=== PATIENT | male | born 1980 | race Caucasian/White ===

== ENCOUNTER 2020-01-31 10:31 | Outpatient (CLI) | payer OTHER, SELFPAY ==
--- NOTE | 2020-01-31 10:44 | XR_ITS ---
WS: [id number] XR cervical spine 3V* [id number] REASON FOR EXAM: S/P CERVICAL SPINE FUSION FINDINGS: Anterior fusion changes with intraspinal space are at C5-C6. The alignment is satisfactory at that level. In the AP projection the remaining cervical spine shows normal amniotic, pedicles, spinous processes. The cervicothoracic junction was normal. The odontoid process is normal. XR/XR cervical spine 3V* [id number] IMPRESSION: Stable fusion C5-C6 with intraspinal spacer.
== END 2020-01-31 10:32 | disposition home or self-care (01) ==
LOC: RAD 10:38
PROVIDERS: Visit Provider Obstetrics & Gynecology
DX: Z98.1 Arthrodesis status (principal)
CPT/HCPCS: 72040

== ENCOUNTER 2020-05-07 15:16 | Outpatient (CLI) | payer OTHER, SELFPAY ==
--- NOTE | 2020-05-07 15:32 | XRR_ITS ---
PROCEDURE INFORMATION: Exam: XR Cervical Spine, 2 or 3 Views Exam date and time: 05/07/2020 3:34 PM Age: 39 years old Clinical indication: Neck pain; Prior surgery; Surgery date: 6+ months; Surgery type: Cervical fusion October 2019; Additional info: S/P cervical fusion TECHNIQUE: Imaging protocol: XR of the cervical spine, 2 or 3 views. COMPARISON: No relevant prior studies available. FINDINGS: Vertebrae: Surgical hardware is present anterior to the cervical vertebral bodies at the C5-C6 level. Loss of cervical lordosis is seen likely due to postoperative changes. Soft tissues: Unremarkable. XR/XR cervical spine 3V* [id number] IMPRESSION: 1. Postsurgical changes spine cervical spine 2. Loss of cervical lordosis likely due to postoperative changes. 3. Otherwise negative examination
== END 2020-05-07 15:17 | disposition home or self-care (01) ==
LOC: RADWPI 15:27
PROVIDERS: Visit Provider Obstetrics & Gynecology
DX: Z98.1 Arthrodesis status (principal)
CPT/HCPCS: 72040

== ENCOUNTER 2020-06-16 07:32 | Outpatient (RCR) | payer OTHER, SELFPAY | END 2020-06-26 23:59 | disposition home or self-care (01) | LOC: SPT 07:32 | PROVIDERS: Referring Provider Obstetrics & Gynecology; Visit Provider Obstetrics & Gynecology | DX: Z47.89 Encounter for other orthopedic aftercare (principal); Z98.1 Arthrodesis status | CPT/HCPCS: 97110; 97161 ==

== ENCOUNTER 2020-06-27 06:00 | Outpatient (RCR) | payer OTHER, SELFPAY | END 2020-07-27 23:59 | disposition home or self-care (01) | LOC: SPT 06:00 | PROVIDERS: Referring Provider Obstetrics & Gynecology; Visit Provider Obstetrics & Gynecology | DX: Z98.1 Arthrodesis status (principal) | CPT/HCPCS: 97110 ==

== ENCOUNTER 2025-09-02 18:09 | Emergency (ER) | payer SELFPAY ==
[2025-09-02 18:08] VITALS: BP 114/81; PULSE 113; RESP 16; TEMP 36.8; O2SAT 97; BMI 26.5
--- NOTE | 2025-09-02 18:13 | ED_ITS ---
HPI - Syncope 2 General: Chief Complaint: Syncope Stated Complaint: Syncope History of Present Illness: 45-year-old man who presents to the [facility] room after he had a syncopal episode. He said he was not feeling well today. He said he slept all day. He said he laid in bed and thought he got dehydrated when he got up he passed out and when he woke up he had the weakness symptoms that have since resolved. At this time he has no specific complaints. Just some malaise. Patient states I am healthy as a horse . He takes no medications. Related Data Home Medications ?Medication ?Instructions ?Recorded ?Confirmed No Known Home Medications 12/02/2405/21 Allergies Allergy/AdvReac Type Severity Reaction Status Date / Time almond Allergy ALGY-Anaphy Verified 09/02/25 18:15 laxis Review of Systems 2 Narrative: Constitutional symptoms: Negative except as documented in HPI. Skin symptoms: Negative except as documented in HPI. Eye symptoms: Negative except as documented in HPI. ENMT symptoms: Negative except as documented in HPI. Respiratory symptoms: Negative except as documented in HPI. Cardiovascular symptoms: Negative except as documented in HPI. Gastrointestinal symptoms: Negative except as documented in HPI. Genitourinary symptoms: Negative except as documented in HPI. Musculoskeletal symptoms: Negative except as documented in HPI. Neurologic symptoms: Negative except as documented in HPI. Psychiatric symptoms: Negative except as documented in HPI. Endocrine symptoms: Negative except as documented in HPI. PFSH ED 2 PFSH: Social History Smoking and tobacco/nicotine status: current every day tobacco/nicotine user Physical Exam 2 Narrative: EXAM NARRATIVE: Constitutional symptoms: Negative except as documented in HPI. Skin symptoms: Negative except as documented in HPI. Eye symptoms: Negative except as documented in HPI. ENMT symptoms: Negative except as documented in HPI. Respiratory symptoms: Negative except as documented in HPI. Cardiovascular symptoms: Negative except as documented in HPI. Gastrointestinal symptoms: Negative except as documented in HPI. Genitourinary symptoms: Negative except as documented in HPI. Musculoskeletal symptoms: Negative except as documented in HPI. Neurologic symptoms: Negative except as documented in HPI. Psychiatric symptoms: Negative except as documented in HPI. Endocrine symptoms: Negative except as documented in HPI. Course 2 Vital Signs: Vital signs: Vital Signs Temperature 98.2 F 09/02/25 18:08 Pulse Rate 83 09/02/25 18:42 Respiratory Rate 18 09/02/25 18:42 Blood Pressure 127/86 09/02/25 18:42 Pulse Oximetry 100 09/02/25 18:42 Oxygen Delivery Me thod Room Air 09/02/25 18:08 MDM - Syncope Medical Decision Making Medical decision making: Differential diagnosis including but not limited to and based on the above HPI, review of systems and physical exam in this patient with syncope: Vasovagal, orthostatics hypotension, cardiac dysrhythmia, myocardial infarction, infection and hypotension, Orders placed to evaluate differential diagnosis based on the above differential, HPI and physical exam EKG: Time 1820. Rate 77. Normal sinus rhythm, No ST-T changes, no ectopy, normal WI & QRS intervals, This was reviewed and interpreted by myself the ER physician at 1825 CT head: No acute intracranial process. No intracranial hemorrhage, no evidence of infarct. No evidence of acute fracture. This was reviewed and interpreted by myself the emergency room physician. I also reviewed the radiology report. Lab Review: Laboratory results were reviewed and interpreted by myself the emergency room physician. No leukocytosis. No anemia. No renal failure. I reviewed the patient's medical record. Reexamination: Patient's heart rate has come down and blood pressure is gone up with fluids. I think he may have had some orthostatic hypotension. He had not had anything to eat or drink all day or all night and then stood up quickly and passed out. Assessment and plan: Dehydration Syncope ? Normal saline bolus in the emergency room - Discharged home - Discussed plan with patient. Answered any questions. - Evaluation and treatment of this problem were appropriate in the emergency setting. Lab Data 09/02/25 18:24 09/02/25 18:[address] 09/02/25: IMPRESSION: No acute intracranial abnormality. Laboratory Results WBC 6.40 10^3/uL (3.29-11.43) 09/02/25 18: RBC 4.86 10^6/uL (3.85-5.65) 09/02/25 18:24 Hgb 14.40 g/dL (11.27-16.99) 09/02/25 18: Hct 43.5 % (37-53) 09/02/25 18: MCV 89.5 fl (82-101) 09/02/25 18:24 MCH 29.6 pg (27-33) 09/02/25 18: MCHC 33.1 g/dL (30-55) 09/02/25 18:24 RDW 12.4 % (12.1-15.1) 09/02/25 18:24 Plt Count 228 10^3/cmm (157-399) 09/02/25 18: MPV 8.6 fL (7.4-10.4) 09/02/25 18:24 Neut % (Auto) 57.7 % 09/02/25 18:24 Lymph % (Auto) 32.5 % 09/02/25 18: [place] % (Auto) 8.3 % 09/02/25 18: Eos % (Auto) 0.9 % 09/02/25 18: Baso % (Auto) 0.3 % 09/02/25 18: Neut # (Auto) 3.69 10^3/uL (1.8-7.7) 09/02/25 18: Lymph # (Auto) 2.1 10^3/uL (0.8-4.8) 09/02/25 18:24 [place] # (Auto) 0.5 10^3/uL (0.2-0.9) 09/02/25 18: Eos # (Auto) 0.1 10^3/uL (0.0-0.8) 09/02/25 18: Baso # (Auto) 0.0 10^3/uL (0.0-0.1) 09/02/25 18: Nucleated RBC % (auto) 0 % 09/02/25 18: Nucleated RBCs # 0.0 /100WBC 09/02/25 18:24 Sodium 140 mmol/L (136-145) 09/02/25 18:24 Potassium 3.8 mmol/L (3.5-5.1) 09/02/25 18:24 Chloride 106 mmol/L (98-107) 09/02/25 18:24 Carbon Dioxide 23 mmol/L (22-29) 09/02/25 18:24 Anion Gap 14.8 (5-19) 09/02/25 18:24 BUN 11 mg/dL (6-20) 09/02/25 18:24 Creatinine 0.9 mg/dL (0.7-1.2) 09/02/25 18:24 GFR Calculation 90.8 mL/min (90-130) 09/02/25 18:24 Glucose 119 mg/dL (65-115) H 09/02/25 18:24 Calculated Osmolality 291 mOsm/kg (285-295) 09/02/25 18:24 Lactic Acid 1.4 mmol/L (0.5-2.2) 09/02/25 18:24 Calcium 8.7 mg/dL (8.5-10.5) 09/02/25 18:24 Total Bilirubin 0.4 mg/dL (0.15-1.2) 09/02/25 18:24 AST 16 U/L (0-40) 09/02/25 18:24 ALT 15 U/L (0-41) 09/02/25 18:24 Alkaline Phosphatase 84 U/L (40-130) 09/02/25 18:24 Total Protein 6.5 g/dL (6.6-8.7) L 09/02/25 18:24 Albumin 3.9 g/dL (3.5-5.2) 09/02/25 18:24 Globulin 2.6 g/dL (1.3-4.6) 09/02/25 18:24 All radiology interpretation(s) finalized by discharge Discharge Plan Discharge Patient Disposition: Home Clinical Impression: Syncope, Dehydration Condition: Stable Prescriptions: No Action No Known Home Medications Discharge Orders: Discharge ED (Routine); Ordered 09/02/25 Ordered By: Kelle Casey Discharge Diet: Usual diet Discharge Activity: Increase activity as tolerated Patient Instructions: Opioid Safety, Pain Management, Patient Portal & Jennifer Instructions Activity Restrictions/Additional Instructions: Thank you for choosing [facility] for your healthcare needs today. You have been screened and evaluated and felt safe for discharge. Health conditions do change or evolve sometimes and as such it is important that you follow up with your Primary Doctor to be re checked, 3-5 days is a general good time frame for follow up. You are always welcome to return to the ED for re assessment if your symptoms are worsening or you have new concerns Print Language: Syriac Coding Level of Care Code ED Physician Underwriter for Louis Taylor
--- NOTE | 2025-09-02 18:20 | ECG_ITS ---
[facility] 2025[facility]02 Pat Name: Vicente Matos Department: Room: Gender: Male Security Services Manager: : 1980 Requested By: Kelle George Order Number: [id number] Pollock MD: Hernando Kaplan M.D. Measurements Intervals [place] Rate: 77 P: 60 [place]: 131 QRS: -7 QRSD: 105 T: 38 QT: 409 QTc: 464 Interpretive Statements SINUS RHYTHM POSSIBLE LEFT ATRIAL ENLARGEMENT [-0.1mV P-WAVE IN V1/V2] No previous ECG available for comparison Electronically Signed On 09-02-2025 23:47:59 CDT by Hernando Kaplan M.D. [email or web address]
--- OUTSIDE RECORDS SUMMARY | 2025-09-02 18:24 | XMS_ITS | Clinical Summary ---
Author Organization [facility] Address [address] [place]n: Epic Prelude ADT [place] [address] Care Team Providers Care Cargo Supervisor Name Role Phone Eric Poe MD Primary Care Provider [phone] Allergies No known active allergies Medications levoFLOXacin (LEVAQUIN) 500 mg tablet Take 1 Tablet (500 mg) by mouth daily. 10 Tablet None 6 Active Additional Information Patient not taking.Reported on 11/06/2023 omeprazole (PriLOSEC) 20 mg Capsule, Delayed Release(E.C.) Take 20 mg by mouth 1 time daily as needed. 6 Active ibuprofen (MOTRIN) 200 mg tablet Take 800 mg by mouth every 6 hours as needed for Pain, Mild. 6 Active Additional Information Patient not taking.Reported on 12/22/2023 Active Problems Problem Noted Date Diagnosed Date Influenza B 11/07/2023 Cigarette dependence 10/06/2016 Immunizations Immunization Administration Dates Next Due Hepatitis A Vaccine 03/21/2002,10/26/2000 Social History Tobacco Use Types Packs/Day Years Used Date Smoking Tobacco: Every Day Cigarettes Smokeless Tobacco: Never Tobacco Cessation:Ready to Q uit: No; Counseling Given: Yes Alcohol Use Standard Drinks/Week Comments No 0 (1 standard drink = 0.6 oz pur e alcohol) Sex and Gender Information Value Date Recorded Sex Assigned at Not on file Legal Sex Male 12:40 PM CORPORATE ACCOUNTING MANAGER Gender Identity Not on file Sexual Orientation Not on file Last Filed Vital Signs Vital Sign Reading Time Taken Comments Blood Pressure 120/82 12/22/2023 8:00 AM CORPORATE ACCOUNTING MANAGER Pulse 79 12/22/2023 8:00 AM CORPORATE ACCOUNTING MANAGER Temperature 36.2 C (97.1 F) 12/22/2023 8:00 AM CORPORATE ACCOUNTING MANAGER Respiratory Rate 18 12/22/2023 8:00 AM CORPORATE ACCOUNTING MANAGER Oxygen Saturation 99% 12/22/2023 8:00 AM CORPORATE ACCOUNTING MANAGER Inhaled Oxygen Concentration - - Weight 84 kg (185 lb 3.2 oz) 12/22/2023 8:00 AM CORPORATE ACCOUNTING MANAGER Height 177.8 cm (5' 10 ) 12/22/2023 8:00 AM CORPORATE ACCOUNTING MANAGER Body Mass Index 26.57 12/22/2023 8:00 AM CORPORATE ACCOUNTING MANAGER Plan of Treatment Health Maintenance Due Date Last Done Comments DTAP/TDAP/TD VACCINES (1 - Tdap) 1998 HEPATITIS B VACCINES (1 of 3 - 19+ 3-dose series) 1998 COLORECTAL SCREENING 2024 Colorectal Cancer Screening 2024 FIT-DNA Q 3 years 2024 FIT/FOBT Q 1 year 2024 Flex Sig/CT Colonography Q 5 years 2024 Preventative Visit- Commercial 11/27/2024 12/22/2023 INFLUENZA VACCINE (#1) 2025 HPV VACCINES Aged Out No longer eligi ble based on patient's age to complete this topic Insurance [facility] [place] Care Teams Cargo Supervisor Relationship Specialty Start Date End Date Eric Poe MD [address] [place] [address] PCP - General Family Practice 11/06/23
--- OUTSIDE RECORDS SUMMARY | 2025-09-02 18:24 | XMS_ITS | Encounter Summary ---
Author Organization [facility] Address [address] [place] [address] Care Team Providers Care Clergy Member Name Role Phone Unavailable Primary Care Provider Unavailabl e Encounter Details Date Type Department Care Team (Late st Contact Info) Description 10/03/2019 Ancillary Orders [facility] Admitting [address] [place] [address] Domitila De La Fuente, RN Cervical radiculopathy; Neck pain Social History Tobacco Use Types Packs/Day Years Used Date Smoking Tobacco: Every Day Cigarettes Smokeless Tobacco: Never Alcohol Use Standard Drinks/Week Comments No 0 (1 standard drink = 0.6 oz pur e alcohol) Sex and Gender Information Value Date Recorded Sex Assigned at Not on file Legal Sex Male 5:52 AM SOLAR THERMAL INSTALLER Gender Identity Not on file Sexual Orientation Not on file documented as of this encounter Plan of Treatment Not on file documented as of this encounter Results * XR CERVICAL SPINE 4 OR 5 VIEWS (10/03/2019 12:30 PM SOLAR THERMAL INSTALLER) Anatomical Region Laterality Modality Spine Computed Radiogr aphy 10/03/2019 12:3 0 PM SOLAR THERMAL INSTALLER Impressions 10/03/2019 2:37 PM SOLAR THERMAL INSTALLER IMPRESSION: See below. Exam: XR CERVICAL SPINE 4 OR 5 VIEWS Date/Time of Exam: 10/03/2019 12:30 PM Reason For Exam: See Diagnosis. Diagnosis: Cervical radiculopathy; Neck pain. Findings: There is straightening of the sagittal alignment with slight anterolisthesis at C4-5. There is prominent disc height loss and endplate degeneration at C5-6. The other disc heights are maintained. There is no pathologic subluxation during flexion and extension. No thickening of the prevertebral soft tissues. [id number] Narrative Procedure Note Dimas Qiu MD - 10/03/2019 IMPRESSION: See below. Exam: XR CERVICAL SPINE 4 OR 5 VIEWS Date/Time of Exam: 10/03/2019 12:30 PM Reason For Exam: See Diagnosis. Diagnosis: Cervical radiculopathy; Neck pain. Findings: There is straightening of the sagittal alignment with slight anterolisthesis at C4-5. There is prominent disc height loss and endplate degeneration at C5-6. The other disc heights are maintained. There is no pathologic subluxation during flexion and extension. No thickening of the prevertebral soft tissues. [id number] us External Provider [facility] ORDERA BLES Final Result documented in this encounter Visit Diagnoses Diagnosis Cervical radiculopathy Brachial neuritis or radiculitis nos Neck pain Cervicalgia Cervical radiculopathy Brachial neuritis or radiculitis nos Neck pain Cervicalgia documented in this encounter
--- OUTSIDE RECORDS SUMMARY | 2025-09-02 18:24 | XMS_ITS | Encounter Summary ---
Author Organization [facility] Address [address] Attn: [place] [address] Care Team Providers Care Visual Communications Instructor Name Role Phone Unavailable Primary Care Provider Unavailabl e Encounter Details Date Type Department Care Team (Latest Contact Info) Description 04/18/2000 Emergency Rashel Owens NO ADDRESS ON FILE Social History Tobacco Use Types Packs/Day Years Used Date Smoking Tobacco: Never Assessed Sex and Gender Information Value Date Recorded Sex Assigned at Not on file Legal Sex Male 5:52 AM DRUGLESS DOCTOR Gender Identity Not on file Sexual Orientation Not on file documented as of this encounter Plan of Treatment Not on file documented as of this encounter Visit Diagnoses Not on filedocumented in this encounter
--- OUTSIDE RECORDS SUMMARY | 2025-09-02 18:24 | XMS_ITS | Encounter Summary ---
Author Organization [facility] Address [address] [place] [address] Care Team Providers Care Stone Layout Marker Name Role Phone Unavailable Primary Care Provider Unavailabl e Encounter Details Date Type Department Care Team (Latest Contact Info) Description 03/26/1999 Outpatient Historical [facility] [address] [address] Curtis Turcios, DO [address] [place] [address] Unspecified local infection of skin and subcutaneous tissue (Primary Dx) Social History Tobacco Use Types Packs/Day Years Used Date Smoking Tobacco: Never Assessed Sex and Gender Information Value Date Recorded Sex Assigned at Not on file Legal Sex Male 5:52 AM NETWORK OPERATIONS CENTER ENGINEER Gender Identity Not on file Sexual Orientation Not on file documented as of this encounter Plan of Treatment Not on file documented as of this encounter Visit Diagnoses Diagnosis Unspecified local infection of skin and subcutaneous tissue- Primary documented in this encounter
--- OUTSIDE RECORDS SUMMARY | 2025-09-02 18:24 | XMS_ITS | Clinical Summary ---
Author Organization [facility] Address [address] [place] [address] Phone Care Team Providers Care Biochemist Name Role Phone Unavailable Primary Care Provider Unavailabl e Allergies No known active allergies Medications omeprazole (PriLOSEC) 20 mg Capsule, Delayed Release(E.C.) Take 20 mg by mouth 1 time daily as needed. Active ibuprofen (MOTRIN) 200 mg tablet Take 800 mg by mouth every 6 hours as needed for Pain, Mild. Active levoFLOXacin (LEVAQUIN) 500 mg tablet Take 1 Tablet (500 mg) by mouth daily. 10 Tablet None 10/06/2016 Active Active Problems Problem Noted Date Diagnosed Date Cigarette dependence 10/06/2016 Immunizations Immunization Administration Dates [...] on file Legal Sex Male 5:52 AM MARKET RESEARCH COORDINATOR Gender Identity Not on file Sexual Orientation Not on file Last Filed Vital Signs Vital Sign Reading Time Taken Comments Blood Pressure 116/71 10/06/2016 5:40 PM MARKET RESEARCH COORDINATOR Pulse - - Temperature 38.6 C (101.5 F) 10/06/2016 5:40 PM MARKET RESEARCH COORDINATOR DR Salomon aware of temperature Respiratory Rate 20 10/06/2016 5:40 PM MARKET RESEARCH COORDINATOR Oxygen Saturation 98% 10/06/2016 5:4 0 PM MARKET RESEARCH COORDINATOR Inhaled Oxygen Concentration - - Weight 83.9 kg (185 lb) 10/06/2016 4:09 PM MARKET RESEARCH COORDINATOR Height 177.8 cm (5' 10 ) 10/06/2016 4:0 9 PM MARKET RESEARCH COORDINATOR Body Mass Index 26.54 10/06/2016 4:09 PM MARKET RESEARCH COORDINATOR Plan of Treatment Health Maintenance Due Date Last Done Comments DTAP/TDAP/TD VACCINES (1 - Tdap) 1998 HEPATITIS B VACCINES (1 of 3 - 19+ 3-dose series) 1998 COLORECTAL SCREENING 2024 Colorectal Cancer Screening 2024 FIT-DNA Q 3 years 2024 FIT/FOBT Q 1 year 2024 Flex Sig/CT Colonography Q 5 years 2024 INFLUENZA VACCINE (#1) 2025 HPV VACCINES Aged Out No longer eligi ble based on patient's age to complete this topic
--- OUTSIDE RECORDS SUMMARY | 2025-09-02 18:24 | XMS_ITS | Encounter Summary ---
Author Organization [facility] Address [address] [place] [address] Care Team Providers Care Dairy Farmer Name Role Phone Unavailable Primary Care Provider Unavailabl e Encounter Details Date Type Department Care Team (Late st Contact Info) Description 03/22/2007 Emergency [facility] Emergency Department [address] [place] [id number] Curtis Patterson MD NO ADDRESS ON FILE Other Acute Pain (Primary Dx) Social History Tobacco Use Types Packs/Day Years Used Date Smoking Tobacco: Never Assessed Sex and Gender Information Value Date Recorded Sex Assigned at Not on file Legal Sex Male 5:52 AM MAGAZINE SUPERVISOR Gender Identity Not on file Sexual Orientation Not on file documented as of this encounter Plan of Treatment Not on file documented as of this encounter Visit Diagnoses Diagnosis Other acute pain- Primary documented in this encounter
--- NOTE | 2025-09-02 18:25 | CTR_ITS ---
PROCEDURE INFORMATION: Exam: CT Head Without Contrast Exam date and time: 09/02/2025 6:32 PM Age: 45 years old Clinical indication: Weakness, extremity; PT states he has been feeling ill since early this morning, this afternoon friend came across street to alert EMS that PT had passed out, when EMS arrived on scene PT was awake but pale and diaphoretic; Additional info: Weakness, syncope TECHNIQUE: Imaging protocol: Computed tomography of the head without contrast. Radiation optimization: All CT scans at this facility use at least one of these dose optimization techniques: automated exposure control; mA and/or kV adjustment per patient size (includes targeted exams where dose is matched to clinical indication); or iterative reconstruction. COMPARISON: CR XR cervical spine 3V* [id number] 05/07/2020 3:38 PM RADIATION DOSE METRICS: Total DLP (mGy-cm): 1232.18 FINDINGS: Brain: Basal cisterns are patent. No hemorrhage, mass effect, extra-axial collection. Ramirez-white matter differentiation is well-preserved. Cerebral ventricles: No ventriculomegaly. Paranasal sinuses: Visualized sinuses are unremarkable. No fluid levels. Mastoid air cells: Visualized mastoid air cells are well aerated. Orbital cavities: Intraorbital contents are normal. Bones: Unremarkable. No acute fracture. Soft tissues: Unremarkable. CT/CT head wo con* [id number] IMPRESSION: No acute intracranial abnormality.
[2025-09-02 18:27] LABS: Hematocrit 43.5 % (37-53); Hemoglobin 14.40 g/dL (11.27-16.99); Mean Corpuscular HGB Conc 33.1 g/dL (30-55); Mean Corpuscular Hemoglobin 29.6 pg (27-33); Mean Corpuscular Volume 89.5 fl (82-101); Nucleated Red Blood Cells % 0 %; Platelet Count 228 10^3/cmm (157-399); Red Blood Count 4.86 10^6/uL (3.85-5.65); White Blood Count 6.40 10^3/uL (3.29-11.43)
[2025-09-02 18:42] VITALS: BP 127/86; PULSE 83; RESP 18; O2SAT 100
[2025-09-02 18:51] LABS: Lactic Sepsis W/Reflex 1.4 mmol/L (0.5-2.2)
[2025-09-02 18:53] LABS: Alanine Aminotransferase 15 U/L (0-41); Albumin Level 3.9 g/dL (3.5-5.2); Alkaline Phosphatase 84 U/L (40-130); Anion Gap 14.8 (5-19); Aspartate Amino Transferase 16 U/L (0-40); Blood Urea Nitrogen 11 mg/dL (6-20); Calcium 8.7 mg/dL (8.5-10.5); Carbon Dioxide 23 mmol/L (22-29); Chloride 106 mmol/L (98-107); Creatinine Clr Calc Pharmacy 112.2285; Globulin 2.6 g/dL (1.3-4.6); Glucose 119 mg/dL (65-115); Osmolality Calculated 291 mOsm/kg (285-295); Potassium 3.8 mmol/L (3.5-5.1); Sodium 140 mmol/L (136-145); Total Protein 6.5 g/dL (6.6-8.7)
[2025-09-02 19:34] VITALS: BP 136/86; PULSE 87; RESP 16; O2SAT 95
== END 2025-09-02 19:36 | disposition home or self-care (01) ==
PROVIDERS: Emergency Provider Emergency Medicine
DX: R55 Syncope and collapse (principal); E86.0 Dehydration
CPT/HCPCS: 36415; 70450; 80053; 83605; 85025; 93005; 96360; 99284; J7030